=== PATIENT | male | born 1960 | race Caucasian/White ===

== ENCOUNTER 2018-07-22 12:34 | Inpatient (IN) | payer OTHER ==
[2018-07-22] VITALS (7 sets, daily range): BP systolic 124–148; BP diastolic 71–80
[~2018-07-22] VITALS: Ht 175.3 cm; Wt 119.5 kg
--- NOTE | ~2018-07-22 | EKG ---
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
--- NOTE | ~2018-07-22 | D ---
[facility] [address] DISCHARGE SUMMARY Name: JULIET LEBLANC Room #: 220-P [facility]..#: [id number] Admission: 07/22/18 Attend Phys: Richie Morelos MD Discharge: 07/27/18 Date of : 60 Report #: [id number] THIS REPORT FOR: //name// CC: Jimmy Morelos [facility] DATE OF SERVICE: 07/27/2018 FINAL DIAGNOSES: 1. Acute hypercapnic hypoxic respiratory failure. 2. Chronic obstructive pulmonary disease. 3. Hyperkalemia due to medication. 4. Hypertension. 5. Tremor due to hypoxia. HOSPITAL COURSE: The patient was admitted with shortness of breath and he was hypoxic, hypercapnic in ER based on ABG. He was treated for bronchitis and COPD with steroids, antibiotics, nebulized treatments and supplemental oxygen. He was requiring 5 liters initially. Gradually this was weaned off, and he was satting 92-94% on room air. His tremor resolved with correction of his hypoxia. Dr. Marques followed him in consultation with Pulmonary Service. He was screened for home oxygen needs and ultimately the plan was to discharge home with nebulized treatment, steroid taper and discontinuation of RHIANNON inhibitor at this point. He also mentions some trouble swallowing. An esophagram was obtained, which showed no stricture obstruction, but there was an aspiration event. Therefore, a video swallow was obtained with speech therapist, which he had no difficulties. There was no recommendation to change diet. PHYSICAL EXAMINATION: On the day of discharge: GENERAL: He was awake and alert. VITAL SIGNS: Stable. LUNGS: Clear. HEART: Regular. ABDOMEN: Soft, normoactive bowel sounds. EXTREMITIES: No edema. O2 sat 90% on room air. DISPOSITION: He is discharged to home with diet and activity as tolerated. Follow up with Dr. Cornell in 1 week, Dr. Marques 2 weeks. DISCHARGE MEDICATIONS: Aspirin 81 mg, Mucinex 1200 mg twice a day, Ventolin inhaler 2 puffs 4 times a day, Advair 2 puffs b.i.d., prednisone taper, Ziac [address] [address] DISCHARGE SUMMARY Name: JULIET LEBLANC Room #: 220-P [facility] IN M.R.#: [id number] Admission: 07/22/18 Attend Phys: Richie Morelos MD Discharge: 07/27/18 Date of : 60 Report #: [id number] mg daily and he is to discontinue the Lotrel, Nexium and aspirin 325. He will also have Omnicef 300 mg daily. <ELECTRONICALLY SIGNED> By: Richie Morelos MD 07/31/18 0853 1138 [id number] Richie Morelos MD /nt
--- NOTE | ~2018-07-22 | H ---
[facility] [place] [address] [place] [address] HISTORY AND PHYSICAL Name: JULIET LEBLANC Room #: 350-P [facility] IN ..#: [id number] Admission: 07/22/18 Attend Phys: Richie Morelos MD Discharge: Date of : 60 Report #: [id number] THIS REPORT FOR: //name// CC: Jimmy Vidal Love DATE OF SERVICE: 07/22/2018 CHIEF COMPLAINT: Shortness of breath and tremor. HISTORY OF PRESENT ILLNESS: The patient is a 58-year-old gentleman who presented to the Emergency Room with a tremor. He said for the last month he has had intermittent episodes of "shaking" of his hands. Symptoms seemed to have progressed to the point where it is difficult for him to perform some general tasks, he said such as manipulating his mobile phone or using the TV remote. He said he just has shaking uncontrollably in the hands. He also noted progressive shortness of breath with exertion and a chronic cough with green sputum over the last several weeks as well. He has a 98-uxra-eqer history of smoking, but says he quit about 4 years ago. PAST MEDICAL HISTORY: Hypertension. PAST SURGICAL HISTORY: None. FAMILY HISTORY: Noncontributory. SOCIAL HISTORY: He is , lives with his . No chronic tobacco use, but some in the past. Occasional alcohol. ALLERGIES: None. MEDICATIONS: Zebeta 5/6.25 mg daily, Lotrel 5/10 mg a day and aspirin 325 mg. REVIEW OF SYSTEMS: Denies headache, chest pain, shortness of breath, abdominal pain, nausea, vomiting, diarrhea, constipation, dysuria or syncope. PHYSICAL EXAMINATION: VITAL SIGNS: Temperature 36.9, pulse 83, respirations 18, blood pressure 149/83 and O2 sat 95% on 5 liters nasal cannula. GENERAL: He is awake and alert, in no distress. LUNGS: Clear. HEART: Regular. ABDOMEN: Soft, obese. Normoactive bowel sounds. EXTREMITIES: No edema. NEUROLOGIC: There is no cranial nerve deficit. Strength is intact. No resting [facility] [place] [address] HISTORY AND PHYSICAL Name: JULIET LEBLANC Room #: 350-P [facility] IN ..#: [id number] Admission: 07/22/18 Attend Phys: Richie Morelos MD Discharge: Date of : 60 Report #: [id number] or intention tremor noted. LABORATORY DATA: Lab review, potassium was 5.[address] of the chest showed no PE. ASSESSMENT: 1. Chronic obstructive pulmonary disease exacerbation. 2. Acute hypoxic hypercapnic respiratory failure with mild respiratory acidosis. 3. Hyperkalemia. 4. Hypertension. PLAN: I suspect that his tremor is probably related to his chronic hypoxia and this may be more of a COPD issue or even consideration of obesity hypoventilation syndrome. I have asked the Pulmonary Service to see him. He is receiving steroids and mucolytics. We will add general antibiotic for COPD exacerbation, repeat his lab data and continue home blood pressure medication. <ELECTRONICALLY SIGNED> By: Richie Morelos MD 07/24/18 0918 1312 [id number] Richie Moerlos MD /nt
--- NOTE | ~2018-07-22 | SPIROMETRY ---
[facility] [place] [address] SPIROMETRY Name: JULIET LEBLANC Room #: 220-P [facility] IN ..#: [id number] Admission: 07/22/18 Attend Phys: Richie Morelos MD Discharge: 07/27/18 Date of : 60 Report #: [id number] THIS REPORT FOR: //name// COPIES FOR: >> SPIROMETRY: (BTPS) Height: 69.0 in cm Weight: 263 lbs kg Exam Date: 07/26/18 PRE-RX POST-RX PRED BEST %PRED BEST %PRED %CHG FVC LITERS . 4.26 . 2.37 . 56 . 2.59 . 61 . 10 FEV1 LITERS . 3.43 . 1.51 . 44 . 1.66 . 48 . 10 FEV1/FVC % . 80 . 64 . 79 . 64 . 80 . 0 EWZ07-75% L/Sec . 3.51 . 0.72 . 21 . 0.81 . 23 . 12 PEF L/SEC . 8.45 . 4.81 . 55 . 6.25 . 74 . 35 FEF50/FIF50 UNITLESS . <1.00 . 0.71 . . 0.49 . . -21 >> INTERPRETATION/IMPRESSION: CC: Jimmy Aleman DATE OF SERVICE: 07/26/2018 SPIROMETRY: FEV1 is 1.51 liters (44%), FVC is 2.37 liters (56%). FEV1/FVC is 64%. Postbronchodilator therapy, FEV1 is 1.66 liters (10% change) FVC 2.59 liters (10% change). IMPRESSION: Spirometry is suggestive of a severe obstructing airflow defect with an intermediate response to bronchodilator therapy. Concurrent restrictive process cannot be evaluated by spirometry alone. May consider full pulmonary function studies. Please correlate clinically. By: Brennan Marques MD /nt
[~2018-07-22 12:34] MED LIST: ASPIRIN EC325 M1 PO; LOTREL 5-10 MG1 EACH PO; NEXIUM40 MG PO
[2018-07-22 12:54] LABS: URINE BILIRUBIN NEGATIVE (Negative); URINE BLOOD NEGATIVE (Negative); URINE CLARITY CLEAR; URINE COLOR YELLOW; URINE GLUCOSE-RANDOM* NEGATIVE (Negative); URINE KETONES NEGATIVE (Negative); URINE LEUKOCYTES-REFLEX NEGATIVE (Negative); URINE NITRITE-REFLEX NEGATIVE (Negative); URINE PROTEIN (DIPSTICK) NEGATIVE (Negative); URINE SPECIFIC GRAVITY 1.025 (1.005-1.035); URINE UROBILINOGEN 0.2 E.U./dl (0.2-1.0)
[2018-07-22] MEDS ORDERED: BISOPROLOL FUMAR5 M1 PO (13:00)
[2018-07-22 13:27] LABS: ABSOLUTE NEUTROPHILS 5.6 thou/uL (1.4-8.2); BASOPHILS 1.4 % (0.0-2.0); EOSINOPHILS 2.2 % (0.0-3.0); HEMOGLOBIN 16.1 gm/dL (14.0-18.0); MCH 31.1 pg (26.0-34.0); MCHC 32.3 g/dL (28.0-37.0); MCV 96.4 fL (80.0-100.0); MONOCYTES 8.9 % (1.0-8.0); PLATELET COUNT 217 thou/uL (150-400); POLYS 68.5 % (36.0-66.0); RBC 5.18 mil/uL (4.50-6.00); RDW 15.1 % (10.5-14.5); WBC 8.2 thou/uL (4.0-11.0)
[2018-07-22 13:36] LABS: ANION GAP 4 mmol/L (7-16); BUN 16 mg/dL (7-18); CALCIUM 9.3 mg/dL (8.5-10.1); CHLORIDE 104 mmol/L (98-107); CO2 30 mmol/L (21-32); CREATININE 1.6 mg/dL (0.7-1.3); GLUCOSE 129 mg/dL (74-106); POTASSIUM 4.9 mmol/L (3.5-5.1); SODIUM 138 mmol/L (136-145)
[2018-07-22 13:41] LABS: BE(vivo) 0.9 mmol/L (-2 to +3); HCO3 29.6 mmol/L (22.0-26.0); PCO2 63.9 mmHg (35.0-45.0)
[2018-07-22 13:45] LABS: pH 7.284 (7.360-7.450)
[2018-07-22 13:46] LABS: ALBUMIN 3.4 g/dL (3.4-5.0); SGOT 19 U/L (15-37); SGPT 33 U/L (30-65); TOTAL BILIRUBIN 0.3 mg/dL (<0.1-1.0); TOTAL PROTEIN 7.1 g/dL (6.4-8.2); TROPONIN-I <0.06 ng/mL (<0.06)
[2018-07-22 17:01] LABS: ALBUMIN 3.5 g/dL (3.4-5.0); TOTAL PROTEIN 6.8 g/dL (6.4-8.2)
[2018-07-22 17:26] LABS: TSH 1.39 uIU/mL (0.358-3.740)
[2018-07-23 03:45] VITALS: BP 129/76
[2018-07-23 06:39] LABS: HEMATOCRIT 51.6 % (42.0-52.0); HEMOGLOBIN 16.6 gm/dL (14.0-18.0); MCH 31.3 pg (26.0-34.0); MCHC 32.2 g/dL (28.0-37.0); MCV 97.4 fL (80.0-100.0); RBC 5.3 mil/uL (4.50-6.00)
[2018-07-23 06:49] LABS: CALCIUM 9.3 mg/dL (8.5-10.1); CREATININE 1.4 mg/dL (0.7-1.3); MAGNESIUM 2.1 mg/dL (1.8-2.4)
[2018-07-23 06:53] LABS: POTASSIUM 5.9 mmol/L (3.5-5.1)
[2018-07-23 07:20] VITALS: BP 149/83
[2018-07-23 15:20] VITALS: BP 127/78
[2018-07-23 20:30] VITALS: BP 113/64
[2018-07-24] VITALS: BP 129/76
[2018-07-24 02:09] LABS: GLYCOHEMOGLOBIN (HGB A1C) 5.5 % (4.8-5.6)
[2018-07-24 04:15] VITALS: BP 130/75
[2018-07-24 05:10] LABS: CALCIUM 9.2 mg/dL (8.5-10.1); CREATININE 1.3 mg/dL (0.7-1.3); MAGNESIUM 2.3 mg/dL (1.8-2.4); POTASSIUM 5.5 mmol/L (3.5-5.1)
[2018-07-24 05:18] LABS: HEMATOCRIT 48.4 % (42.0-52.0); HEMOGLOBIN 15.6 gm/dL (14.0-18.0); MCH 31.2 pg (26.0-34.0); MCHC 32.2 g/dL (28.0-37.0); MCV 96.7 fL (80.0-100.0); RDW 15.3 % (10.5-14.5); WBC 13.5 thou/uL (4.0-11.0)
[2018-07-24 08:00] VITALS: BP 141/83
[2018-07-24 16:00] VITALS: BP 140/70
[2018-07-24 21:18] VITALS: BP 137/78
[2018-07-25 07:15] VITALS: BP 136/78
[2018-07-25 07:21] LABS: HEMATOCRIT 49.4 % (42.0-52.0); HEMOGLOBIN 16.1 gm/dL (14.0-18.0); MCH 31.2 pg (26.0-34.0); MCHC 32.5 g/dL (28.0-37.0); MCV 95.8 fL (80.0-100.0); RBC 5.15 mil/uL (4.50-6.00); RDW 14.9 % (10.5-14.5); WBC 14.1 thou/uL (4.0-11.0)
[2018-07-25 07:31] LABS: CALCIUM 9.5 mg/dL (8.5-10.1); CREATININE 1.2 mg/dL (0.7-1.3); MAGNESIUM 2.5 mg/dL (1.8-2.4); POTASSIUM 5.5 mmol/L (3.5-5.1)
[2018-07-25 20:24] VITALS: BP 156/81
[2018-07-26 07:15] VITALS: BP 152/90
[2018-07-26 07:36] LABS: HEMATOCRIT 50.4 % (42.0-52.0); HEMOGLOBIN 16.5 gm/dL (14.0-18.0); MCH 31.2 pg (26.0-34.0); MCHC 32.7 g/dL (28.0-37.0); MCV 95.3 fL (80.0-100.0); RBC 5.29 mil/uL (4.50-6.00); RDW 15.3 % (10.5-14.5); WBC 9.5 thou/uL (4.0-11.0)
[2018-07-26 07:47] LABS: CALCIUM 9.2 mg/dL (8.5-10.1); CREATININE 1.1 mg/dL (0.7-1.3); MAGNESIUM 2.3 mg/dL (1.8-2.4); POTASSIUM 4.8 mmol/L (3.5-5.1)
[2018-07-26 19:56] VITALS: BP 155/94
[2018-07-27 08:00] VITALS: BP 138/86
[2018-07-27] MEDS ORDERED: ASA81BEC PO (11:30)
[2018-07-27] MEDS ORDERED: MUCINEX600 MG PO (11:30)
[2018-07-27] MEDS ORDERED: ADVAIR HFA 230M12 GM INH (11:31)
[2018-07-27] MEDS ORDERED: VENTOLIN HFA 1818 GM INH (11:31)
[2018-07-27] MEDS ORDERED: PREDNISONE 20 M20 MG PO (11:32)
[2018-07-27] MEDS ORDERED: CEFDINIR300 MG PO (11:39)
[2018-07-27 11:47] VITALS: BP 138/86
== END 2018-07-27 12:45 | disposition home or self-care (01) | DRG 682 ==
LOC: ER 12:34 → SICU 15:00 → 3W 15:00 → EROBS 15:00 → 3W 15:46 → SICU 07-24 19:48 → ENTRNSPT 07-27 12:27 → EDTRNSPTSTS 07-27 12:38 → SICU 07-27 12:45
PROVIDERS: Internal Medicine; Student in an Organized Health Care Education/Training Program
DX: N17.0 Acute kidney failure with tubular necrosis (principal); J96.01 Acute respiratory failure with hypoxia; J96.02 Acute respiratory failure with hypercapnia; J44.1 Chronic obstructive pulmonary disease with (acute) exacerbation; E87.2 Acidosis; J44.0 Chronic obstructive pulmonary disease with (acute) lower respiratory infection; J20.9 Acute bronchitis, unspecified; I10 Essential (primary) hypertension; K08.409 Partial loss of teeth, unspecified cause, unspecified class; K21.9 Gastro-esophageal reflux disease without esophagitis; E66.9 Obesity, unspecified; E87.5 Hyperkalemia; T50.905A Adverse effect of unspecified drugs, medicaments and biological substances, initial encounter; R25.1 Tremor, unspecified; Z79.899 Other long term (current) drug therapy; Z79.82 Long term (current) use of aspirin; Z90.5 Acquired absence of kidney; Z87.891 Personal history of nicotine dependence; Z68.38 Body mass index [BMI] 38.0-38.9, adult
CPT/HCPCS: 10879; 15002

== ENCOUNTER → 2020-02-06 | Outpatient (CLI) | payer OTHER ==
[~2020-02-06] MED LIST changes: +ADVAIR HFA 230M12 GM INH; +ASA81BEC PO; +BISOPROLOL FUMAR5 M1 PO; +CEFDINIR300 MG PO; +MUCINEX600 MG PO; +PREDNISONE 20 M20 MG PO; +VENTOLIN HFA 1818 GM INH
== END ==
LOC: CAT 15:25
DX: R51 Headache (principal)

== ENCOUNTER 2020-08-30 22:25 | Inpatient (IN) | payer OTHER ==
[~2020-08-30] VITALS: Ht 175.3 cm; Wt 110.2 kg
[2020-08-30 22:34] VITALS: BP 124/63
[2020-08-30] MEDS ORDERED: AMLODIPINE-BEN1 EAC5 PO (22:44)
[2020-08-30] MEDS ORDERED: BENAZEPRIL HCL20 MG PO (22:45)
[2020-08-30 23:23] LABS: ABSOLUTE NEUTROPHILS 7.3 thou/uL (1.4-8.2); BASOPHILS 1.2 % (0.0-2.0); EOSINOPHILS 0.3 % (0.0-3.0); HEMATOCRIT 47.1 % (42.0-52.0); HEMOGLOBIN 15.9 gm/dL (14.0-18.0); LYMPHOCYTES 13.9 % (24.0-44.0); MCHC 33.7 g/dL (28.0-37.0); MCV 91.9 fL (80.0-100.0); PLATELET COUNT 218 thou/uL (150-400); POLYS 76.6 % (36.0-66.0); RBC 5.12 mil/uL (4.50-6.00); RDW 14.3 % (10.5-14.5); WBC 9.5 thou/uL (4.0-11.0)
[2020-08-30 23:27] LABS: BE(vivo) -3.6 mmol/L (-2 to +3); HCO3 20.1 mmol/L (22.0-26.0); PCO2 33.2 mmHg (35.0-45.0); sO2 87.4 % (92.0-98.0)
[2020-08-30 23:28] LABS: PO2 52.2 mmHg (80.0-100.0)
[2020-08-30 23:34] LABS: APTT 34.6 Seconds (24.5-32.8); PROTIME 10.6 Seconds (9.3-11.4)
[2020-08-30 23:38] LABS: ANION GAP 10 mmol/L (7-16); BUN 29 mg/dL (7-18); CALCIUM 8.1 mg/dL (8.5-10.1); CHLORIDE 100 mmol/L (98-107); CO2 22 mmol/L (21-32); GLUCOSE 111 mg/dL (74-106); POTASSIUM 5.4 mmol/L (3.5-5.1); SODIUM 132 mmol/L (136-145)
[2020-08-30 23:43] LABS: ALBUMIN 2.8 g/dL (3.4-5.0); MAGNESIUM 2.3 mg/dL (1.8-2.4); SGOT 45 U/L (15-37); SGPT 44 U/L (30-65); TOTAL BILIRUBIN 0.5 mg/dL (0.2-1.0); TOTAL PROTEIN 7.4 g/dL (6.4-8.2); TROPONIN-I <0.06 ng/mL (<0.06)
[2020-08-31] VITALS (9 sets, daily range): BP systolic 91–124; BP diastolic 42–72
--- NOTE | 2020-08-31 01:21 | NUR ---
Talked with pt's daughter-Kala and gave her an update
--- NOTE | 2020-08-31 02:04 | NUR ---
Waiting for ERT to assist pt to inpatient room
--- NOTE | 2020-08-31 04:28 | NUR ---
PT ADMITTED FROM ER AT 0245. A&OX4. RR 22 SAT 93 ON 86% FIO2 55 LF OPTIFLO. LUNGS SOUND DIMINISHED THROUGHOUT ALL STUBBS. INSTRUCTED PT ON FALL PRECAUTIONS. ORIENTED PT TO . BED DOWN LOW LOCKED POSITION. BED ALARM ON. CALL LIGHT IN REACH. PHONE AT BS. SR ON HT MONITOR. CAREPLAN INITIATED.
[2020-08-31 05:11] LABS: HEMATOCRIT 47.1 % (42.0-52.0); HEMOGLOBIN 15.7 gm/dL (14.0-18.0); MCHC 33.4 g/dL (28.0-37.0); MCV 92.9 fL (80.0-100.0); RBC 5.07 mil/uL (4.50-6.00); RDW 14.2 % (10.5-14.5)
[2020-08-31 05:30] LABS: CALCIUM 8.1 mg/dL (8.5-10.1); MAGNESIUM 2.5 mg/dL (1.8-2.4); POTASSIUM 5.5 mmol/L (3.5-5.1)
--- NOTE | 2020-08-31 07:28 | EKG ---
[facility] [place] [address] [place] [address] ELECTROCARDIOGRAM REPORT Name: JULIET LEBLANC Room #: 358- ADM IN M.R.#: [id number] Admission: 08/31/20 Attend Phys: Cody Gold MD Discharge: Date of : 60 Report #: [id number] THIS REPORT FOR: cc: Jimmy Cornell MD, Christopher B. 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 : 1960 Requested By: Tani De Guzman Order Number: [id number] MD: Jairon Simms Measurements Intervals [place]t Rate: 91 P: 20 DE: 153 QRS: 35 QRSD: 92 T: 33 QT: 340 QTc: 419 Interpretive Statements Sinus rhythm Abnormal R-wave progression, late transition Compared to ECG 07/22/2018 14:22:48 No significant changes Electronically Signed On 08-31-2020 7:28:08 CDT by Jairon Simms [email or web address] <ELECTRONICALLY SIGNED> By: Jairon Simms MD, [facility] 08/31/20 0728 37 37 Jairon Simms MD, [facility] /EPI
--- NOTE | 2020-08-31 07:49 | NUR ---
PT STILL SOA WITH AND MOVEMENT IE STANDING AT BS TO VOID DROPPED TO 85%. INSTRUCTED TO URINATE AT BS SO HIS SATS WOULD NOT DROP ANY FURTHER. WALKER AND BSC PROVIDED FOR STABILITY.
--- NOTE | 2020-08-31 12:55 | NUR ---
CONSENT OBTAINED FOR CONVALESCENT PLASMA ADMINISTRATION
--- NOTE | 2020-08-31 13:15 | NUR ---
INITIAL ASSESSMENT: Received consult. SW reviewed chart and spoke with nursing and attending physician. Pt was admitted from home due to hypoxia/exacerbation of COPD. Pt tested positive for COVID-19 4 days prior to admission. Pt had repeat positive test on 08/30. Pt is afebrile and requiring O2. Pt is on IV abx and IV steroids. ID consulted and started pt on course of Remdesivir. Pt to receive convalescent plasma. SW spoke with pt via phone. Introduced role of SW. Pt is alert/orientated x 4. Pt reports he lives at home with his , who has also tested positive for COVID. Prior to admission, pt was independent with ADLs. No use of DME for ambulation. Pt has a cpap and home O2 through [facility]. Pt states he does not use his home O2 very often. No hx of services or post-acute placement. Pt's PCP is Dr. Duke Cornell. Pt would benefit from therapy evals when able to participate. SW is following to assist as needed [facility] discharge planning.
[2020-08-31 14:53] LABS: URINE BILIRUBIN NEGATIVE (Negative); URINE BLOOD NEGATIVE (Negative); URINE CLARITY CLEAR; URINE COLOR YELLOW; URINE GLUCOSE-RANDOM* NEGATIVE (Negative); URINE KETONES NEGATIVE (Negative); URINE LEUKOCYTES-REFLEX NEGATIVE (Negative); URINE NITRITE-REFLEX NEGATIVE (Negative); URINE PROTEIN (DIPSTICK) NEGATIVE (Negative); URINE UROBILINOGEN 0.2 E.U./dl (0.2-1.0)
--- NOTE | 2020-08-31 17:47 | NUR ---
PT CONDITION STABLE. PT STILL ON 55L 85% FIO2 ON VAPOTHERM. PT IS TOLERATING WELL WITH SATURATIONS AROUND 90-93%. AWAITING SPUTUM CULTURE. MRSA AND RESP. PANEL SWABS DONE. PT RECEIVED CONVALESENT PLASMA AND REMDISIVIR TODAY. PT UP WITH PATY ASSIST TO BSC. DENIES PAIN. AFEBRILE THROUGOUT SHIFT.
--- NOTE | 2020-08-31 21:52 | NUR ---
PT ALERT AND ORIENTED X4. VSS AFEBRILE. SAT 94% ON CURRENT OPTIFLOW SETTINGS. LUNGS SOUNDS DIMINISHED. RR 22. DESATS WHILE UP TO BSC 85%, ABX GIVEN ORDERED. CONVALESENT PLASMA GIVEN ORDERED. WILL CONTINUE TO MONITOR PT FOR CHANGES, BED DOWN. CALL LIGHT IN REACH. BED ALARM IS ON.
--- NOTE | 2020-09-01 00:36 | NUR ---
REPORT GIVEN TO PAWAN WEBB WHOM ASSUMED CARE OF PT AROUND 2300.
[2020-09-01 00:57] VITALS: BP 107/58
[2020-09-01 05:02] VITALS: BP 138/67
--- NOTE | 2020-09-01 05:47 | NUR ---
ASSUMED CARE FROM EVENING SHIFT NURSE, PT AWAKE UP TO BSC WITH STOOL AND VOIDED, DENIES SOA, TOLERATED WELL WHEN UP, AUCTIONEER ART SHOWS NSR .PT RESTED WELL NO CHANGES NOTED IN PT ASSESSMENT.
[2020-09-01 06:52] LABS: ABSOLUTE NEUTROPHILS 10.5 thou/uL (1.4-8.2); BASOPHILS 0.2 % (0.0-2.0); HEMATOCRIT 47.5 % (42.0-52.0); HEMOGLOBIN 15.5 gm/dL (14.0-18.0); LYMPHOCYTES 5.7 % (24.0-44.0); MCH 30.3 pg (26.0-34.0); MCHC 32.6 g/dL (28.0-37.0); MCV 92.9 fL (80.0-100.0); MONOCYTES 6.4 % (1.0-8.0); POLYS 87.7 % (36.0-66.0); RBC 5.11 mil/uL (4.50-6.00); RDW 13.9 % (10.5-14.5); WBC 11.9 thou/uL (4.0-11.0)
[2020-09-01 06:57] LABS: PLATELET COUNT 314 thou/uL (150-400)
[2020-09-01 07:13] VITALS: BP 122/63
[2020-09-01 07:22] LABS: ALBUMIN 2.8 g/dL (3.4-5.0); ANION GAP 11 mmol/L (7-16); BUN 48 mg/dL (7-18); CALCIUM 8.3 mg/dL (8.5-10.1); CHLORIDE 103 mmol/L (98-107); CO2 22 mmol/L (21-32); CREATININE 1.7 mg/dL (0.7-1.3); DIRECT BILIRUBIN < 0.1 mg/dL (<0.1-0.2); GLUCOSE 170 mg/dL (74-106); PHOSPHORUS 4.2 mg/dL (2.5-4.9); POTASSIUM 4.8 mmol/L (3.5-5.1); SGOT 46 U/L (15-37); SGPT 42 U/L (30-65); SODIUM 136 mmol/L (136-145); TOTAL BILIRUBIN 0.3 mg/dL (0.2-1.0); TOTAL PROTEIN 7.5 g/dL (6.4-8.2)
[2020-09-01 07:29] LABS: FIBRINOGEN 542.4 mg/dL (210-360); PROTIME 10.7 Seconds (9.3-11.4)
[2020-09-01 15:21] VITALS: BP 125/64
--- NOTE | 2020-09-01 15:55 | NUR ---
SW reviewed chart and spoke with nursing and attending physician. Pt remains in Enhanced Isolation due to COVID-19. Pt is afebrile and on optiflow. Pt is on IV abx, IV steroids and IV Lasix. Pt had convalescent plasma yesterday and has started course of Remdesivir. Pt would benefit from therapy evals when able to participate. Pt is from home. EDWAR is following to assist as needed with discharge planning.
--- NOTE | 2020-09-01 19:43 | NUR ---
ASSUMED CARE APPROX 0700. PT ALERT AND ORIENTED X4. ASSESSMENTS CHARTED AND VSS. PT AFEBRILE THIS SHIFT. REMAINS ON OPTIFLO AT 55LPM W/O DISTRESS NOTED. PT DENIES CHEST PAIN. PT DENIES ACUTE PAIN. SR ON TELE MONITOR. PT RESTING IN CHAIR. PT SLOWLY PROGRESSING TOWARDS PLAN OF CARE GOALS. WILL CONTINUE TO MONITOR.
[2020-09-01 19:48] VITALS: BP 142/62
[2020-09-02 04:48] VITALS: BP 132/72
--- NOTE | 2020-09-02 05:11 | NUR ---
FOLLOWING POC WITH [facility] ANTIBIOTICS. PT ON OPTIFLOW AT 55% 02. PT DESATS WHEN AMBULATING TO BSC. NO FEVERS OVERNIGHT. PT USES CALL LIGHT EFFECTIVELY TO EXPRESS HIS NEEDS.
[2020-09-02 06:04] LABS: CREATININE 1.7 mg/dL (0.7-1.3); DIRECT BILIRUBIN 0.1 mg/dL (<0.1-0.2); TOTAL BILIRUBIN 0.3 mg/dL (0.2-1.0); TOTAL PROTEIN 7.5 g/dL (6.4-8.2)
[2020-09-02 08:33] VITALS: BP 157/66
[2020-09-02 11:09] VITALS: BP 143/72
[2020-09-02 15:05] VITALS: BP 143/73
--- NOTE | 2020-09-02 15:51 | NUR ---
SW reviewed chart and spoke with nursing and attending physician. Pt remains in Enhanced Isolation due to COVID-19. Pt is afebrile and on Optiflow. Pt is on IV Lasix, IV steroids and IV abx. Pt is completing course of Remdesivir. Therapy evals have not yet been ordered. Pt will need rest/exercise oximetry prior to discharge. Pt has home O2 in place through [facility], and was on 2L PRN prior to admission. EDWAR is following to assist as needed with discharge planning.
--- NOTE | 2020-09-02 16:26 | NUR ---
ASSUMED CARE APPROX 0700. PT ALERT AND ORIENTED X4. ASSESSMENTS CHARTED AND VSS. PT DENIES PAIN THIS SHIFT. AFEBRILE THIS SHIFT. OPTIFLO TITRATED DOWN TO 40L BY RT AND PT TOLERATING FINE. DOES DESAT WHEN AMBULATING, BUT RECOVERS QUICKLY. PT SLOWLY PROGRESSING TOWARDS PLAN OF CARE GOALS. WILL CONTINUE TO MONITOR.
[2020-09-02 19:23] VITALS: BP 157/69
[2020-09-03 03:53] VITALS: BP 132/66
--- NOTE | 2020-09-03 06:38 | NUR ---
PT IS CONTINENT TO B/B AND HAD BM AND NUMEROUS MICTRATIONS OVERNIGHT. FOLLOWING POC WITH OXYGEN AT 40L ON THE OPTIFLOW. PT DESATS WHEN MOVING TO BSC. VSS OTHERWISE. TELE SHOWS SR/ST.
[2020-09-03 06:55] LABS: ABSOLUTE NEUTROPHILS 8.3 thou/uL (1.4-8.2); BASOPHILS 0.7 % (0.0-2.0); HEMATOCRIT 47.8 % (42.0-52.0); HEMOGLOBIN 15.7 gm/dL (14.0-18.0); LYMPHOCYTES 5.5 % (24.0-44.0); MCH 30.4 pg (26.0-34.0); MCV 92.3 fL (80.0-100.0); MONOCYTES 8.9 % (1.0-8.0); PLATELET COUNT 338 thou/uL (150-400); POLYS 84.9 % (36.0-66.0); RBC 5.17 mil/uL (4.50-6.00); RDW 14.3 % (10.5-14.5); WBC 9.7 thou/uL (4.0-11.0)
[2020-09-03 07:04] LABS: ALBUMIN 2.9 g/dL (3.4-5.0); CALCIUM 8.7 mg/dL (8.5-10.1); CREATININE 1.2 mg/dL (0.7-1.3); DIRECT BILIRUBIN 0.1 mg/dL (<0.1-0.2); POTASSIUM 5.2 mmol/L (3.5-5.1); TOTAL BILIRUBIN 0.4 mg/dL (0.2-1.0); TOTAL PROTEIN 7.1 g/dL (6.4-8.2)
[2020-09-03 07:17] VITALS: BP 146/77
[2020-09-03 11:05] VITALS: BP 132/86
--- NOTE | 2020-09-03 15:15 | NUR ---
EDWAR reviewed chart and spoke with nursing and attending physician. Pt remains in Enhanced Isolation due to COVID-19. Pt is afebrile and is on optiflow. Pt is on IV lasix, IV steroids, IV abx. Pt is completing course of Remdesivir. EDWAR spoke with pt via phone. Discussed discharge plan. Pt states his plan is to go home when medically stable for discharge. Pt has home O2 in place at home with Rona and is on 2L of O2 PRN. Pt will need rest/exercise oximetry prior to discharge to determine home O2 needs. EDWAR is following to assist as needed with discharge planning.
[2020-09-03 15:46] VITALS: BP 149/75
--- NOTE | 2020-09-03 17:37 | NUR ---
ASSUMED PATIENT CARE AT 0700. ALERT. CONFUSED. REFUSED EAT AND DRINK. NOT TOWARDS OC GOALS.
--- NOTE | 2020-09-03 18:37 | NUR ---
ASSUMED PATIENT CARE AT 0700. A/0 X4. ON HIFLOOW 02. TOLERATED WELL. COUGH, VSS. SLOWLY TOWARDS POC GOALS.
[2020-09-03 19:00] VITALS: BP 161/86
[2020-09-04 03:46] VITALS: BP 137/71
--- NOTE | 2020-09-04 05:54 | NUR ---
ASSUMED PT CARE AT AROUND 1915 HRS. REPORTS LESS DYSPNEA AND FEELING ALOT BETTER. UP TO BSC, TOLERATES WELL, DESATS WITH EXERTION. DENIES PAIN. NO EDEMA, REFUSES SCDS, ON LOVENOX.HE STILL HAS A CONGESTED COUGH, REPORTS OCCSIONAL SPUTUM. AFEBRILE. ON HIGH FLOW O2@40L, FI02 OF 72%. TAKES MEDS OKAY. CONTINUE ON IV ABTS.NO FURTHER CONCERNS.
[2020-09-04 07:02] LABS: ALBUMIN 3.1 g/dL (3.4-5.0); CREATININE 1.2 mg/dL (0.7-1.3); DIRECT BILIRUBIN 0.2 mg/dL (<0.1-0.2); TOTAL BILIRUBIN 0.5 mg/dL (0.2-1.0); TOTAL PROTEIN 7.7 g/dL (6.4-8.2)
[2020-09-04 07:34] VITALS: BP 136/73
[2020-09-04 11:14] LABS: ALBUMIN 3.2 g/dL (3.4-5.0); CALCIUM 8.9 mg/dL (8.5-10.1); CREATININE 1.2 mg/dL (0.7-1.3); PHOSPHORUS 4.2 mg/dL (2.5-4.9); POTASSIUM 5.9 mmol/L (3.5-5.1)
[2020-09-04 12:30] VITALS: BP 150/74
--- NOTE | 2020-09-04 15:55 | NUR ---
EDWAR reviewed chart and spoke with nursing and attending physician. Pt remains in Enhanced Isolation due to COVID-19. Pt is afebrile and on optiflow. Pt is on IV lasix, IV abx and IV steroids. Pt to complete course of Remdesivir today. Pt may d/c home over the weekend pending respiratory status. Pt will need a rest/exercise oximetry study prior to discharge to determine home O2 needs. Pt is currently on service with [facility] [place]. EDWAR faxed face sheet and clinical info to [facility] [place] for review. Notified liaison of possible weekend discharge. Testing results and script will need to be faxed to [facility] [place] in order for pt to receive additional equipment. EDWAR is following to assist as needed with discharge planning. [facility]---
--- NOTE | 2020-09-04 16:31 | NUR ---
ASSUMED CARE APPROX 0700. PT ALERT AND ORIENTED X4. ASSESSMENTS CHARTED AND VSS. PT REMAINS ON OPTIFLOW @40L AND TOLERATING W/O DISTRESS NOTED. PT REPORTS THAT HE'S BREATHING BETTER DAILY. PT DENIES ACUTE PAIN. DENIES CHEST PAIN. SR TO ST ON THE TELE MONITOR. PT'S DTR, RONNI, UPDATED ON STATUS. PT RESTING IN THE CHAIR. WILL CONTINUE TO MONITOR.
[2020-09-04 16:36] VITALS: BP 171/79
[2020-09-04 19:36] VITALS: BP 173/84
[2020-09-05 05:20] VITALS: BP 156/87
[2020-09-05 07:45] VITALS: BP 185/91
--- NOTE | 2020-09-05 10:15 | NUR ---
discussed during prime time with bedside nurse, pt is now requiring high flow o2 40%.
[2020-09-05 11:09] VITALS: BP 148/86
[2020-09-05 15:14] VITALS: BP 155/86
--- NOTE | 2020-09-05 19:29 | NUR ---
RN RESUMED PT'S CARE AT 0700AM , PT IS A&OX3, PT IS ON HIGH FOLLOW 40% O2 , PT'S VS AND O2SAT ARE STABLE, PT GETS UP TO CHAIR WITH ASSIST , PT DENIES PAIN AND SOB AT DAYSHIFT.
[2020-09-05 20:15] VITALS: BP 168/78
[2020-09-05 23:25] VITALS: BP 126/71
--- NOTE | 2020-09-06 02:24 | NUR ---
PT ALERT AND ORIENTED X4 VSS. AFEBRILE. LUNGS HAVE SOME EXP WHEEZES, DIMINISHED AT BASES. OPTIFLOW ON. RESP TX PER RT. SOLUMEDROL AND ABX GIVEN ORDERED. MN IS RESTING QUIETLY. NO S/S DISTRESS. BED DOWN. CALL LIGHT IN REACH. BED ALARM IS ON. WILL CONTINUE TO MONITOR PT FOR CHANGES.
[2020-09-06 02:47] VITALS: BP 153/78
[2020-09-06 08:02] VITALS: BP 146/70
[2020-09-06 12:10] VITALS: BP 148/74
[2020-09-06 15:15] VITALS: BP 146/86
--- NOTE | 2020-09-06 18:39 | NUR ---
RN ASSUMED PT'S CARE AT 0700AM, PT IS A&OX3, PT IS ON OPTOFLOW O2 40L /NC TO KEEP O2SAT AT 93-99%, BUT PT'S O2SAT WAS DRIP WITH PT'S ACTIVITIES, PT'S VS ARE STABLE, PT GETS UP TO CHAIR.
[2020-09-06 19:04] VITALS: BP 144/87
--- NOTE | 2020-09-07 00:56 | NUR ---
Pt alert and oriented x4. VSS. AFEBRILE. DESATS TO UPPER 80'S WHEN GOING TO BSC. NON PRODUCTIVEN COUGH NOTED. LUNGS SOUND DIMINISHED. PT STILL ON HFNC OPTIFLOW. IV ABX HUNG ORDERED. DENIED PAIN. NO S/S DISTRESS. REPORT GIVEN TO Jenn HOOPER RN WHO ASSUMED CARE OF PT AROUND 23:30. BED DOWN . CALL LIGHT INREACH. BED ALARM IS ON.
[2020-09-07 03:17] VITALS: BP 138/74
[2020-09-07 06:46] VITALS: BP 126/80
--- NOTE | 2020-09-07 07:16 | NUR ---
Took over care of pt. after 2300. Pt. on optiflow with 70% FIO2 and 40% literflow. O2 sat in the low 90's , desat in the upper 80's when getting up to commode but recovers easily. Cont. on enhanced precaution ,afebrile. Up with SBA to commode to void. SR at rest and low 100's with activities.
--- NOTE | 2020-09-07 09:50 | NUR ---
Assess due to length of stay. Admit with COVID+ pneumonia. Hx COPD, NERISSA, obesity, renal cancer. Requires high flow 02. Eating 80-100% meals. Wt down 4 lb, not significant. BMI is 37.5. On steroids and BG controlled with ss insulin. Low nutrition risk
[2020-09-07 11:52] VITALS: BP 148/73
--- NOTE | 2020-09-07 15:36 | NUR ---
EDWAR reviewed chart and spoke with nursing and attending physician. Pt remains in Enhanced Isolation due to COVID-19. Pt is afebrile and on optiflow. Pt is on IV abx and IV steroids. Pt has had both convalescent plasma and course of Remdesivir. Repeat COVID test ordered for today and is pending. EDWAR received call from Ledy at [facility] stating that pt is currently on service with them for home O2. [facility] had forwarded pt's info to [facility]. EDWAR provided update to [place]. The highest amount of O2 that can be provided at home is 15L. Pt is currently on 40L with 70% FiO2. EDWAR is following to assist as needed with discharge planning.
[2020-09-07 16:00] VITALS: BP 148/81
--- NOTE | 2020-09-07 18:11 | NUR ---
RN ASSUMED PT'S CARE AT 0700AM, PT IS A&OX3, PT IS ON OPTOFLOW O2 40L/NC TO KEEP O2SAT 93-98%, PT'S VS ARE STABLE , PT 'S O2SAT IS DRIOP WITH ACTIVITIES, PT GETS UP TO CHAIR , PT 'S COVID RESULT IS POSITIVE FROM TODAY TEST, PT DENIES PAIN AT THIS TIME.
[2020-09-07 19:18] VITALS: BP 159/88
[2020-09-08 04:40] VITALS: BP 148/91
[2020-09-08 07:22] VITALS: BP 156/82
--- NOTE | 2020-09-08 08:05 | NUR ---
PATIENT IS ON OPTIFLOW.UP TO THE BEDSIDE COMMODE.MONITOR SHOWS SINUS TACHY.DENIES NEEDS AT THIS TIME.POC CONTINUED.
[2020-09-08 11:21] VITALS: BP 146/78
[2020-09-08 15:52] VITALS: BP 139/81
--- NOTE | 2020-09-08 16:08 | NUR ---
EDWAR reviewed chart and spoke with nursing and attending physician. Pt remains in Enhanced Isolation due to COVID-19. Pt's repeat COVID test yesterday was positive. Pt is afebrile and on optiflow (40L 70% Fi02). Pt is on IV abx and IV steroids. Therapy anticipates pt will be able to discharge home when O2 requirements can be managed in the home setting. EDWAR spoke with pt via phone to provide update and discuss discharge plan. Pt states he is ready to discharge home. EDWAR is following to assist as needed with discharge planning.
--- NOTE | 2020-09-08 18:27 | NUR ---
RN ASSUMED PT'S CARE AT 0700AM, PT IS A&OX3, PT STILL NEEDS HIGH FLOW O2 40L/NC( O2 73% ) TO KEEP O2SAT 93-99%, PT GETS UP TO CHAIR , AND PT HAS WALKING IN HIS ROOM WITH PT, PT IS CONTINUING ISOLATION FOR POSITIVE COVID.
[2020-09-08 19:56] VITALS: BP 153/87
--- NOTE | 2020-09-08 22:13 | NUR ---
PT SITTING UP IN CHAIR WATCHING TV. OPTI DASHA DECREASED TO 35% BY RESPIRATORY. LUNGS REMAIN COARSE IN THE BASES. PT STEADY WITH PIVOT AND TRANSFERS, USING BSC. IV MEDS GIVEN. PT HAD HS SNACK. PT TALKED ON PHONE WITH HIS FAMILY. PT REQUESTING THERAPY BE INCREASED TO TWICE A DAY.
[2020-09-09 03:25] VITALS: BP 142/92
[2020-09-09 08:26] VITALS: BP 146/77
[2020-09-09 12:48] VITALS: BP 138/78
--- NOTE | 2020-09-09 15:57 | NUR ---
SW reviewed chart and spoke with nursing and attending physician. Pt remains in Enhanced Isolation due to COVID-19. Pt is afebrile and on optiflow. Pt is on IV abx and IV steroids. Plan is for pt to discharge home when O2 level can be managed in home setting. EDWAR is following to assist as needed with discharge planning.
--- NOTE | 2020-09-09 16:11 | NUR ---
PT ALERT AND ORIENTED TIMES FOUR. VSS. 94%OPITFLOW. PT DENIES PAIN. PT TOLERATES MEDS AND MEALS. PT UP STIING IN THE CHAIR FOR MOST OF THE DAY. PT PROGRESSING TOWRADS POC GOALS.
[2020-09-09 17:00] VITALS: BP 155/86
[2020-09-09 19:33] VITALS: BP 139/73
--- NOTE | 2020-09-09 19:59 | NUR ---
PT RESTING IN BED ALL LIGHTS OFF, PT REQUESTED LIGHTS REMAIN OFF AFTER ASSESSMENT COMPLETED. PT VERBALIZED CONCERN THAT HIS HR REMAINS OVER 1OO. PT STATED HE ENJOYED THERAPY TODAY. LUNGS WHEEZES, OPTI FLOW. PT STEADY WITH TRANSFERS TO BSC. PT CALLS FOR ASSISTANCE.
[2020-09-10 03:36] VITALS: BP 143/66
[2020-09-10 07:58] VITALS: BP 146/85
[2020-09-10 11:27] VITALS: BP 143/83
--- NOTE | 2020-09-10 13:40 | NUR ---
SW reviewed chart and spoke with nursing and attending physician. Pt remains in Enhanced Isolation due to COVID-19. Pt is afebrile and requiring Optiflow. Pt is on IV abx and IV steroids. Plan is for pt to discharge home when medically stable. EDWAR is following to assist as needed with discharge planning.
[2020-09-10 15:39] VITALS: BP 154/81
--- NOTE | 2020-09-10 16:53 | NUR ---
RN ASSUMED PT'S CARE AT 0700AM, PT IS A&OX3, PT STILL IS ON HIGH FLOW O2 35-40L/MIN/NC TO KEEP O2SAT 93-96%, PT'S VS ARE STABLE, BUT PT DESAT O2 WITH ACTIVITIES, PT GETS UP TO BSC AND CHAIR , PT DOES NOT HAVE PAIN AT THIS TIME, PT IS CONTINUING ISOLATION FOR POSITIVE COVID.
[2020-09-10 20:16] VITALS: BP 158/91
[2020-09-11 04:52] VITALS: BP 153/85
--- NOTE | 2020-09-11 05:00 | NUR ---
ASSUMED CARE OF PT AT 1900HRS. PT AOX4 AND LETS NEEDS BE KNOWN. PT IS INDEPENDENT IN THE ROOM. PT DENIES PAIN AND NAUSEA. HIGH FLOW O2 CONTINED. PT RUNNING SR/ST ON TELE. ASSESSMENT CHARTED. PT HAS A PRODUCTIVE COUGH. PT WAS ABLE TO GET COMFORTABLE AND SLEEP PART OF THE SHIFT. VSS AND NO S/S OF ACUTE DISTRESS. WILL CONTINUE TO MONITOR.
[2020-09-11 07:57] VITALS: BP 141/83
[2020-09-11 11:29] VITALS: BP 127/77
--- NOTE | 2020-09-11 13:29 | NUR ---
SW reviewed chart and spoke with nursing and attending physician. Pt remains in Enhanced Isolation due to COVID-19. Pt is afebrile and requring optiflow. Pt is on IV abx and IV steroids. No weekend discharge planned. Pt will need O2 needs to be manageable in the home setting. Discharge home is anticipated for next week. EDWAR is following to assist as needed with discharge planning.
--- NOTE | 2020-09-11 13:40 | EKG ---
[facility] [place] [address] [place] [address] ELECTROCARDIOGRAM REPORT Name: JULIET LEBLANC Room #: 358- ADM IN M.R.#: [id number] Admission: 08/31/20 Attend Phys: Campbell Lopez Discharge: Date of : 60 Report #: [id number] THIS REPORT FOR: cc: Jimmy Cornell MD, Christopher B. 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 : 1960 Requested By: Cody Gold Order Number: [id number] MD: Keagan Crews Measurements Intervals Randolph Rate: 116 P: 42 CA: 142 QRS: 70 QRSD: 93 T: 54 QT: 295 QTc: 410 Interpretive Statements Sinus tachycardia Probable left atrial enlargement Nonspecific repol abnormality, lateral leads Baseline wander in lead(s) I,II,III,aVR,aVL,aVF,V1,V2,V3,V4,V5,V6 Compared to ECG 08/30/2020 22:38:44 Sinus rhythm no longer present Electronically Signed On 09-11-2020 13:39:58 CDT by Keagan Crews [email or web address] <ELECTRONICALLY SIGNED> By: Keagan Crews MD, [facility] 09/11/20 1339 6 6 Keagan Crews MD, [facility] /EPI
[2020-09-11 15:51] VITALS: BP 132/76
--- NOTE | 2020-09-11 18:25 | NUR ---
RN ASSUMED PT'S CARE AT 0700AM , PT IS A&OX3, PT IS ON HIGH FLOW O2 10L/MIN/NC WITH O2 50% TO KEEP PT'S O2SAT 93-96%, PT'S VS ARE STABLE, PT IS CONTINUING ISOLATION FOR POSITIVE COVID, PT GETS UP TO CHAIR AND BSC BY HIMSELF, PT HAS PT/OT WORKING WITH HIM , PT DENIES PAIN AND SOB AT THIS TIME.
[2020-09-11 19:32] VITALS: BP 144/80
[2020-09-12] VITALS (8 sets, daily range): BP systolic 101–118; BP diastolic 51–72
--- NOTE | 2020-09-12 07:38 | NUR ---
ASSUMED CARE OF PT AT 1900HRS. PT IS AOX4 ADN INDEPENDENT IN HIS ROOM. PT IS SR/ST ON TELE. PT DENIES PAIN OR NAUSEA. PT CURRENTLY ON HIGH FLOW O2. PT WASLKED ABOUT 200FT IN HIS ROOM BEFORE GOING TO BED. PT WAS ABLE TO GET COMFORTABLE AND SLEEP PART OF THE SHIFT. VSS AND NO S/S OF ACUTE DISTRESS. WILL CONTINUE TO MONITOR.
--- NOTE | 2020-09-12 19:15 | NUR ---
PT CARE ASSUMED AT 0700. ASSESSMENT CHARTED. MEDICATION CHARTED. HIGH FLOW FIO2 NC 50 %; 30 LPM. COVID POSITIVE. RAC IV. ACHS. PT IS UP AD DORIS. PT VERY CONCERNED ABOUT HIS BP; WORRIES THAT 65 DIASTOLIC IS TO LOW. BM TODAY.
--- NOTE | 2020-09-12 21:00 | NUR ---
ASSUMED ARE FROM DAY SHIFT PT RESTNG IN BED NO CONCERNS VOICED DENIES SOA, LUNG SOUNDS REMAIN DIMINISHED THROUGHOUT, NO COUGH NOTED. OPTIFLOW ON AT 40 % PT RESTED WELL THROUGOUT HOURLY ROUNDS , WILL CONINTUE WITH CURRENT PLAN OF CARE AND WILL REPORT CHANGES OR ABNORMAL FINDINGS.
[2020-09-13 04:51] VITALS: BP 117/66
[2020-09-13 08:37] VITALS: BP 107/70
[2020-09-13 11:15] VITALS: BP 104/55
[2020-09-13 16:30] VITALS: BP 110/57
--- NOTE | 2020-09-13 18:12 | NUR ---
ASSUMED PATIENT CARE AT 0700. A/O X4. PATIENT ON HIF NC O2 9L NOW. TOLERTATED WELL. AMBULATED IN ROOM. PROGRASSING TOWARDS POC GOALS.
[2020-09-13 19:41] VITALS: BP 145/62
--- NOTE | 2020-09-14 02:08 | NUR ---
PT CARE ASSUMED WITH PT IN CHAIR WATCHING TV AT 1900.PT IS ALERT AND ORIENTED X4.PT IS UP IN ROOM.PT DENIED PAIN.PT IS ONE 9L OF O2 HIGH FLOW PER NASAL CANULA.PT IS ACCUCHECK ACHS .WILL CONTINUE TO MONITOR PER POC
[2020-09-14 03:50] VITALS: BP 114/73
[2020-09-14 08:46] VITALS: BP 133/62
--- NOTE | 2020-09-14 12:35 | NUR ---
Followup: COVID +. Continues on heart healthy diet order. Has still been eating well 80-100% of meals, although wt down about 15 lb over extended length of stay. Spoke with duncan, states no concerns with meals. Encouraged RN to make sure pt aware of ability to order from Alternative menu. Remains low nutrition risk at this time, and to promote goal of wt maintenance
[2020-09-14 13:11] VITALS: BP 125/63
--- NOTE | 2020-09-14 16:06 | NUR ---
EDWAR reviewed chart and spoke with nursing and attending physician. Pt remains in Enhanced Isolation due to COVID-19. Pt is afebrile and on 7L of O2. Pt is on IV steroids. Pt to have rest/exercise oximetry to determine pt's home O2 needs. EDWAR spoke with pt via phone to discuss discharge plan. Pt verbalized understanding that he will likely need a higher O2 liter flow than previously. Pt states that his home concentrator goes up to 5L. EDWAR spoke with Mary at [facility], who states they are able to provide a concentrator that goes up to 10L. Will need documentation and order for hi flow O2 concentrator. DME is able to be delivered on the same day. EDWAR is following to assist as needed with discharge planning.
[2020-09-14 17:32] VITALS: BP 118/71
[2020-09-14 20:05] VITALS: BP 111/71
[2020-09-15 03:53] VITALS: BP 112/60
--- NOTE | 2020-09-15 05:03 | NUR ---
Pt. up in the chair at beginning of shift watching TV. O2 at 6L/HF and denies being short of breath. He feels like he is ready to go home eventhough he is not back to his baseline. Up ad corina in room with steady gait. Voiding per commode (pt's preference). Cont. on enhanced precaution , afebrile. Making progress towards care plan goals.
[2020-09-15 07:39] VITALS: BP 120/65
[2020-09-15 11:21] VITALS: BP 101/54
--- NOTE | 2020-09-15 13:03 | NUR ---
SW reviewed chart and spoke with nursing and attending physician. Pt remains in Enhanced Isolation due to COVID-19. Pt is afebrile and on 6L of O2. Discharge home is anticipated for tomorrow. Rest/exercise oximetry needed prior to discharge. Pt is currently on service with [facility] and will need new home O2 orders. SW is following to assist as needed with discharge planing.
[2020-09-15 15:15] VITALS: BP 109/58
[2020-09-15 20:40] VITALS: BP 115/64
[2020-09-16] VITALS (7 sets, daily range): BP systolic 108–124; BP diastolic 51–64
--- NOTE | 2020-09-16 06:15 | NUR ---
Pt. slept well during the night. Maintaining O2 sat in the low 90's while asleep then mid 90's while awake on 5L/HF. Up ad corina in room with steady gait. Afebrile. Making progress towards care plan goals.
[2020-09-16] MEDS ORDERED: CARVEDILOL12.5 MG PO (09:21)
[2020-09-16] MEDS ORDERED: OXYGEN MISCELL (10:32)
[2020-09-16] MEDS ORDERED: PREDNISONE 10 M10 M1 PO (13:09)
--- NOTE | 2020-09-16 16:01 | NUR ---
DISCHARGE NOTE: EDWAR reviewed chart and spoke with nursing and attending physician. Pt is medically stable for discharge home today with HH and Home O2. Pt remains in Enhanced Isolation due to COVID-19. Rest/exercise oximetry completed. Pt requires 2L at rest and 4L with activity. EDWAR spoke with pt via phone to discuss discharge plan. Pt is aware and agreeable with plan. Pt's home O2 is already in place with [facility]. SW provided options for HH agencies. No preference voiced. EDWAR confirmed pt's home address and phone number. EDWAR faxed clinical info/COVID test results/discharge ppwk to [facility] for review. Awaiting call back to confirm they accept pt's insurance. EDWAR notified that [facility] is not in-network. EDWAR faxed HH referral to [facility] . Spoke with Charlette in intake, who states they are able to accept pt on service. EDWAR faxed clinical info, testing and script to [facility] for review. Spoke with Mary in intake. Portable tank to be delivered to pt's hospital room. Contact info for [facility] and HH placed in pt's discharge summary. Pt's family to provide transportation home. EDWAR is following to assist as needed with discharge planning.
== END 2020-09-16 17:06 | disposition home health service (06) | DRG 177 ==
LOC: ER 22:25 → 3W 08-31 01:01 → EROBS 08-31 01:01 → 3W 08-31 01:27
PROVIDERS: Emergency Medicine; Nurse Practitioner Family; Pediatrics; Specialist; ADMIT Hospitalist; ATTEND Hospitalist
PROC: XW13325 Transfusion of Convalescent Plasma (Nonautologous) into Peripheral Vein, Percutaneous Approach, New Technology Group 5 (ICD-10-PCS; principal; 2020-08-31)
PROC: XW033E5 Introduction of Remdesivir Anti-infective into Peripheral Vein, Percutaneous Approach, New Technology Group 5 (ICD-10-PCS; principal; 2020-08-31)
PROC: 5A0945A Assistance with Respiratory Ventilation, 24-96 Consecutive Hours, High Flow/Velocity Cannula (ICD-10-PCS; principal; 2020-08-31)
DX: U07.1 COVID-19 (principal); J12.9 Viral pneumonia, unspecified; J96.21 Acute and chronic respiratory failure with hypoxia; J96.22 Acute and chronic respiratory failure with hypercapnia; N17.9 Acute kidney failure, unspecified; J44.0 Chronic obstructive pulmonary disease with (acute) lower respiratory infection; J44.1 Chronic obstructive pulmonary disease with (acute) exacerbation; K21.9 Gastro-esophageal reflux disease without esophagitis; E66.9 Obesity, unspecified; G47.33 Obstructive sleep apnea (adult) (pediatric); I10 Essential (primary) hypertension; E87.5 Hyperkalemia; Z79.82 Long term (current) use of aspirin; Z79.899 Other long term (current) drug therapy; Z87.891 Personal history of nicotine dependence; Z68.35 Body mass index [BMI] 35.0-35.9, adult; Z82.49 Family history of ischemic heart disease and other diseases of the circulatory system; Z80.51 Family history of malignant neoplasm of kidney; Z90.5 Acquired absence of kidney; Z23 Encounter for immunization
CPT/HCPCS: 10879

== ENCOUNTER → 2020-10-16 | Outpatient (CLI) | payer OTHER ==
[~2020-10-16] MED LIST changes: +AMLODIPINE-BEN1 EAC5 PO; +BENAZEPRIL HCL20 MG PO; +CARVEDILOL12.5 MG PO; +OXYGEN MISCELL; +PREDNISONE 10 M10 M1 PO
== END ==
LOC: RAD 09:45
PROVIDERS: ATTEND Pediatrics
DX: J44.9 Chronic obstructive pulmonary disease, unspecified (principal)

== ENCOUNTER → 2021-05-07 | Outpatient (CLI) | payer OTHER | LOC: CAT 09:56 | PROVIDERS: ATTEND Pediatrics | DX: Z12.2 Encounter for screening for malignant neoplasm of respiratory organs (principal); I25.10 Atherosclerotic heart disease of native coronary artery without angina pectoris; J98.11 Atelectasis; J98.4 Other disorders of lung; J34.89 Other specified disorders of nose and nasal sinuses; Z87.891 Personal history of nicotine dependence ==